=== PATIENT | male | born 1995 | race Hispanic/Latino ===

== ENCOUNTER 2020-01-21 19:40 | Emergency (ER) | payer BC, SELFPAY ==
[2020-01-21] MEDS ORDERED: MORPHINE 4 MG/ML SYR ONE (20:54)
[2020-01-21] MEDS ORDERED: ONDANSETRON 4 MG/2 ML VIAL ONE (20:54)
[2020-01-21 20:55] LABS: Basophils % 0.7 % (0-1.3); Hematocrit 49.6 % (39.6-49.0); Lymphocytes % 22.1 % (15.3-44.8); RBC Red Blood Cell Count 5.88 M/uL (4.33-5.43)
[2020-01-21 21:08] LABS: Potassium 3.5 mmol/L (3.5-5.1)
[2020-01-21] MEDS ORDERED: NA CHLORIDE 0.9% 1,000 ML ONE (21:14)
--- NOTE | 2020-01-21 23:33 | ER ---
Nurse's Notes [facility] Name: Jhoan Lin Age: 24 yrs Sex: Male : 1995 Arrival Date: 01/21/2020 Time: 19:42 Bed 13 Private MD: Diagnosis: Cellulitis of abdominal wall;Cutaneous abscess of abdominal wall Presentation: 01/20 19:48 Chief complaint: Patient states: Mid abdominal pain since Wednesday. States he believes ll1 its a hernia, lifts heavy objects at work. No N/V/D or fever. Coronavirus screen: Client denies travel out of the [place] in the last 14 days. At this time, the client does not indicate any symptoms associated with coronavirus-19. Ebola Screen: Patient denies travel to an Ebola-affected area in the 21 days before illness onset. Initial Sepsis Screen: Does the patient meet any 2 criteria? HR > 90 bpm. No. Patient's initial sepsis screen is negative. Risk Assessment: Do you want to hurt yourself or someone else? Patient reports no desire to harm self or others. Onset of symptoms was January 18, 2020. 19:48 Method Of Arrival: Ambulatory ll1 19:48 Acuity: DINESH 3 ll1 20:30 Initial Sepsis Screen: Does the patient have a suspected source of infection? Yes: wh Acute abdominal pain. Historical: - Allergies: 19:50 No Known Allergies; ll1 - PSHx: 19:50 None; ll1 - Immunization history:: Flu vaccine is not up to date. - Social history:: Smoking status: Patient/guardian denies using tobacco, Stopped _ months ago 2 Patient/guardian denies using alcohol, the patient reports quitting approximately .[address] drugs. Screenin:30 Abuse screen: Denies threats or abuse. Denies injuries from another. Nutritional wh screening: No deficits noted. Tuberculosis screening: No symptoms or risk factors identified. Fall Risk None identified. Assessment: 20:10 General: Appears in no apparent distress. Behavior is calm, cooperative, appropriate wh for age. Pain: Complains of pain in umbilical area. Neuro: Level of Consciousness is awake, alert, obeys commands, Oriented to person, place, time, situation, Appropriate for age. Cardiovascular: Heart tones S1 S2. Respiratory: Airway is patent Respiratory effort is even, unlabored, Respiratory pattern is regular, symmetrical, Breath sounds are clear bilaterally. GI: Abdomen is flat, non-distended, Bowel sounds present X 4 quads. Abd is soft Abdomen is tender to palpation in umbilical area. : No signs and/or symptoms were reported regarding the genitourinary system. EENT: No signs and/or symptoms were reported regarding the EENT system. Derm: Skin is intact, is healthy with good turgor, Skin is pink, warm \T\ dry. normal. Musculoskeletal: Circulation, motion, and sensation intact. 22:00 Reassessment: Patient appears in no apparent distress at this time. No changes from previously documented assessment. Patient and/or family updated on plan of care and expected duration. Pain level reassessed. Patient is alert, oriented x 3, equal unlabored respirations, skin warm/dry/pink. 23:30 Reassessment: Patient appears in no apparent distress at this time. No changes from previously documented assessment. Patient and/or family updated on plan of care and expected duration. Pain level reassessed. Patient is alert, oriented x 3, equal unlabored respirations, skin warm/dry/pink. Patient states feeling better. Patient states symptoms have improved. Vital Signs: 19:48 BP 129 / 67; Pulse 92; Resp 17; Temp 98.8; Pulse Ox 98% ; Pain 5/10; ll1 21:00 BP 103 / 90; Pulse 82; Resp 18; Pulse Ox 94% on R/A; wh 22:00 BP 109 / 57; Pulse 80; Resp 18; Pulse Ox 99% on R/A; Pain 1/10; wh 23:30 BP 114 / 60; Pulse 71; Resp 18; Pulse Ox 99% on R/A; wh ED Course: 19:42 Patient arrived in ED. ag3 19:49 Triage completed. ll1 19:50 Arm band placed on Patient placed in an exam room, on a stretcher. ll1 19:51 Chelsey Streeter FNP-C [facility]. kb 19:51 Jabier Rai MD is Attending Physician. kb 20:12 Bryan Ross is Primary Nurse. wh 20:30 Patient has correct armband on for positive identification. Bed in low position. Call light in reach. Side rails up X 1. Pulse ox on. NIBP on. 20:30 Inserted saline lock: 20 gauge in left antecubital area, using aseptic technique. Blood wh collected. By Fadumo Brian RN. 21:48 CT Abd/Pelvis - IV Contrast Only In Process Unspecified. EDMS 23:32 Vijay Lopez MD is Referral Physician. kb 23:45 IV discontinued, intact, bleeding controlled, No redness/swelling at site. 23:58 No provider procedures requiring assistance completed. Administered Medications: 20:30 Drug: NS 0.9% 1000 ml Route: IV; Rate: 1000 ml; Site: left antecubital; 01/21 00:01 Follow up: Response: No adverse reaction; IV Status: Completed infusion 01/20 20:32 Drug: morphine 4 mg {Note: RASS 0.} Route: IVP; Site: left antecubital; 01/21 00:01 Follow up: Response: No adverse reaction; Pain is decreased; RASS: Alert and Calm (0) 01/20 20:34 Drug: Zofran (Ondansetron) 4 mg Route: IVP; Site: left antecubital; 01/21 00:01 Follow up: Response: No adverse reaction 00:01 Follow up: Response: No adverse reaction; Nausea is decreased 01/20 23:42 Drug: Bactrim (160 mg-800 mg (DS) 1 tablet Route: PO; 01/21 00:00 Follow up: Response: No adverse reaction 01/20 23:42 Drug: KeFLEX 500 mg Route: PO; 01/21 00:00 Follow up: Response: No adverse reaction Outcome: 01/20 23:32 Discharge ordered by . kb 23:46 Discharged to home ambulatory. 23:46 Condition: stable 23:46 Discharge instructions given to patient, Instructed on discharge instructions, follow up and referral plans. medication usage, POC Demonstrated understanding of instructions, follow-up care, medications, POC Prescriptions given X 2. 01/21 00:02 Patient left the ED. Signatures: Dispatcher [employer] EDMS Chelsey Streeter, MARBLE MACHINE TENDER-C MARBLE MACHINE TENDER-Bryan Hughes María Wu ag3 Fadumo Brian, RN RN ls4 Michael Mccall RN RN ll1 Corrections: (The following items were deleted from the chart) 00:02 09/13 22:00 BP 109 / 57; Pulse 80bpm; Resp 18bpm; Pulse Ox 99% RA; wh wh
--- NOTE | 2020-01-21 23:33 | EDPHYS ---
Physician Documentation [facility] Name: Jhoan Lin Age: 24 yrs Sex: Male : 1995 Arrival Date: 01/21/2020 Time: 19:42 Bed 13 Private MD: ED Physician Jabier Rai HPI: 01/20 20:25 This 24 yrs old Male presents to ER via Ambulatory with complaints of kb Abdominal Pain. 20:25 The patient presents with abdominal pain in the periumbilical area. Onset: The kb symptoms/episode began/occurred 3 hour(s) ago. The symptoms do not radiate. Associated signs and symptoms: none. The symptoms are described as constant. Modifying factors: The symptoms are alleviated by nothing, the symptoms are aggravated by pressure. Severity of pain: At its worst the pain was moderate in the emergency department the pain is unchanged. The patient has not experienced similar symptoms in the past. The patient has not recently seen a physician. Pt reports he was lifting something heavy on Wednesday and started having abd pain. Historical: - Allergies: 19:50 No Known Allergies; ll1 - PSHx: 19:50 None; ll1 - Immunization history:: Flu vaccine is not up to date. - Social history:: Smoking status: Patient/guardian denies using tobacco, Stopped _ months ago 2 Patient/guardian denies using alcohol, the patient reports quitting approximately .[address], [address] drugs. ROS: 20:25 Constitutional: Negative for fever, chills, and weight loss, Cardiovascular: Negative kb for chest pain, palpitations, and edema, Respiratory: Negative for shortness of breath, cough, wheezing, and pleuritic chest pain, Back: Negative for injury and pain, MS/Extremity: Negative for injury and deformity, Skin: Negative for injury, rash, and discoloration, Neuro: Negative for headache, weakness, numbness, tingling, and seizure. 20:25 Abdomen/GI: Positive for abdominal pain, Negative for nausea, vomiting, and diarrhea. Exam: 20:24 Constitutional: This is a well developed, well nourished patient who is awake, alert, kb and in no acute distress. Head/Face: Normocephalic, atraumatic. Chest/axilla: Normal chest wall appearance and motion. Nontender with no deformity. No lesions are appreciated. Cardiovascular: Regular rate and rhythm with a normal S1 and S2. No gallops, murmurs, or rubs. Normal PMI, no JVD. No pulse deficits. Respiratory: Lungs have equal breath sounds bilaterally, clear to auscultation and percussion. No rales, rhonchi or wheezes noted. No increased work of breathing, no retractions or nasal flaring. Back: No spinal tenderness. No costovertebral tenderness. Full range of motion. Skin: Warm, dry with normal turgor. Normal color with no rashes, no lesions, and no evidence of cellulitis. MS/ Extremity: Pulses equal, no cyanosis. Neurovascular intact. Full, normal range of motion. Neuro: Awake and alert, GCS 15, oriented to person, place, time, and situation. Cranial nerves II-XII grossly intact. Motor strength 5/5 in all extremities. Sensory grossly intact. Cerebellar exam normal. Normal gait. 20:24 Abdomen/GI: Inspection: abdomen appears normal, Bowel sounds: normal, in all quadrants, Palpation: soft, in all quadrants, moderate abdominal tenderness, in the umbilical area, Hernia: noted in the umbilical area. Vital Signs: 19:48 BP 129 / 67; Pulse 92; Resp 17; Temp 98.8; Pulse Ox 98% ; Pain 5/10; ll1 21:00 BP 103 / 90; Pulse 82; Resp 18; Pulse Ox 94% on R/A; wh 22:00 BP 109 / 57; Pulse 80; Resp 18; Pulse Ox 99% on R/A; Pain 1/10; wh 23:30 BP 114 / 60; Pulse 71; Resp 18; Pulse Ox 99% on R/A; wh MDM: 19:52 Patient medically screened. kb 20:23 Data reviewed: vital signs, nurses notes. Data interpreted: Pulse oximetry: on room air kb is 98 %. Interpretation: normal. 23:31 Counseling: I had a detailed discussion with the patient and/or guardian regarding: the kb historical points, exam findings, and any diagnostic results supporting the discharge/admit diagnosis, lab results, radiology results, the need for outpatient follow up, a general surgeon, to return to the emergency department if symptoms worsen or persist or if there are any questions or concerns that arise at home. 01/20 20:10 Order name: Basic Metabolic Panel; Complete Time: 21:09 kb 01/20 20:10 Order name: CBC with Diff; Complete Time: 21:00 kb 01/20 20:10 Order name: CT Abd/Pelvis - IV Contrast Only 01/20 23:38 Order name: CREATININE WHOLE BLOOD; Complete Time: 23:47 EDMS 01/20 20:10 Order name: IV Saline Lock; Complete Time: 20:59 kb 01/20 20:10 Order name: Labs collected and sent; Complete Time: 20:59 kb Administered Medications: 20:30 Drug: NS 0.9% 1000 ml Route: IV; Rate: 1000 ml; Site: left antecubital; 01/21 00:01 Follow up: Response: No adverse reaction; IV Status: Completed infusion 01/20 20:32 Drug: morphine 4 mg {Note: RASS 0.} Route: IVP; Site: left antecubital; 01/21 00:01 Follow up: Response: No adverse reaction; Pain is decreased; RASS: Alert and Calm (0) 01/20 20:34 Drug: Zofran (Ondansetron) 4 mg Route: IVP; Site: left antecubital; 01/21 00:01 Follow up: Response: No adverse reaction 00:01 Follow up: Response: No adverse reaction; Nausea is decreased 01/20 23:42 Drug: Bactrim (160 mg-800 mg (DS) 1 tablet Route: PO; 01/21 00:00 Follow up: Response: No adverse reaction 01/20 23:42 Drug: KeFLEX 500 mg Route: PO; 01/21 00:00 Follow up: Response: No adverse reaction Disposition: 00:59 Co-signature as Attending Physician, Jabier Rai MD. rn Disposition: 01/21/20 23:32 Discharged to Home. Impression: Cellulitis of abdominal wall, Cutaneous abscess of abdominal wall. - Condition is Stable. - Discharge Instructions: Cellulitis, Adult, Skin Abscess, [id number]. - Prescriptions for Keflex 500 mg Oral Capsule - take 1 capsule by ORAL route every 8 hours for 10 days; 30 capsule. Bactrim DS 800- 160 mg Oral Tablet - take 1 tablet by ORAL route every 12 hours for 10 days; 20 tablet. - Medication Reconciliation Form, Thank You Letter, Antibiotic Education, Prescription Opioid Use, Work release form, SBAR form form. - Follow up: Emergency Department; When: As needed; Reason: Worsening of condition. Follow up: Private Physician; When: 2 - 3 days; Reason: Recheck today's complaints, Continuance of care, Re-evaluation by your physician. Follow up: Vijay Lopez MD; When: Tomorrow; Reason: Recheck today's complaints. Signatures: Dispatcher [employer] EDOH Chelsey Streeter, POST FORM REMOVER-C POST FORM REMOVER-Ckb Jabier Rai MD MD rn [place], Michael Rayo RN RN ll1 Corrections: (The following items were deleted from the chart) 01/20 23:32 23:32 01/21/2020 23:32 Discharged to Home. Impression: Cellulitis of abdominal wall; kb Cutaneous abscess of abdominal wall. Condition is Stable. Forms are Medication Reconciliation Form, Thank You Letter, Antibiotic Education, Prescription Opioid Use. Follow up: Emergency Department; When: As needed; Reason: Worsening of condition. Follow up: Private Physician; When: 2 - 3 days; Reason: Recheck today's complaints, Continuance of care, Re-evaluation by your physician. 01/21 00:02 01/20 23:32 01/21/2020 23:32 Discharged to Home. Impression: Cellulitis of abdominal wh wall; Cutaneous abscess of abdominal wall. Condition is Stable. Discharge Instructions: Cellulitis, Adult, Skin Abscess, [id number]. Prescriptions for Keflex 500 mg Oral Capsule - take 1 capsule by ORAL route every 8 hours for 10 days; 30 capsule, Bactrim DS 800-160 mg Oral Tablet - take 1 tablet by ORAL route every 12 hours for 10 days; 20 tablet. and Forms are Medication Reconciliation Form, Thank You Letter, Antibiotic Education, Prescription Opioid Use. Follow up: Emergency Department; When: As needed; Reason: Worsening of condition. Follow up: Private Physician; When: 2 - 3 days; Reason: Recheck today's complaints, Continuance of care, Re-evaluation by your physician. Follow up: Vijay Lopez; When: Tomorrow; Reason: Recheck today's complaints. kb
[2020-01-21] MEDS ORDERED: SMZ./TMP. 800/160 MG TABLET ONE (23:47)
[2020-01-21] MEDS ORDERED: CEPHALEXIN 250 MG CAP ONE (23:48)
[2020-01-22 00:48] VITALS: TEMP 98.8
[2020-01-22 00:51] VITALS: O2SAT 99
[2020-01-22 00:52] VITALS: BP 114/60
--- NOTE | 2020-01-22 13:22 | RAD REPORT ---
EXAM DESCRIPTION: CT - Abdomen Pelvis W Contrast - 01/22/2020 4:21 am ADDENDUM #1 Amended report: Increased attenuation subcutaneous fat periumbilical soft tissues consistent with edema and celluliti s. 1 cm low-attenuation focus left periumbilical soft tissues possibly tiny abscess. This finding is best identified on axial series 401 arterial phase imaging image 49. Electronically signed by: Lyndsay Mota MD 01/21/2020 10:37 PM CDT End of Addendum EXAM DESCRIPTION: Abdomen Pelvis W Contrast CLINICAL HISTORY: 24 years Male ABD PAIN COMPARISON: None TECHNIQUE: Images were obtained in axial, sagittal, and coronal planes. Intravenous contrast was adm inistered. This exam was performed according to our departmental dose-optimization program which includes use of Automated Exposure Control, adjustment of the mA and/or kV according to patient size and/or use o f iterative reconstruction technique. FINDINGS: No abnormality involving the liver, pancreas, gallbladder, or adrenal glands bilaterally. Spleen is enlarged measuring 13.1 cm in longitudinal dimension. No obstructing renal calcifications bilaterally. No hydronephrosis bilaterally. Unremarkable bladder. Appendix within normal limits. No bowel obstruction or perforation. Mucosal thickening involving the colon. No abnormality abdominal aorta or portal vein. No adenopathy or abnormal fluid collections seen. No acute osseous abnormality. Sclerotic focus lateral right ileum possibly bone island. No abnormality lower lungs bilaterally. IMPRESSION: Findings consistent with colitis. Appendix within normal limits. Otherwise unremarkable study. Electronically signed by: Lyndsay Mota MD 01/21/2020 10:01 PM CDT Due to temporary technical issues with the PACS/Fluency reporting system, reports are being signed by the in house radiologist without review as a courtesy to ensure prompt reporting. The interpreting r adiologist is fully responsible for the content of the report.
== END 2020-01-22 00:02 | disposition home or self-care (01) ==
LOC: ER 19:40
DX: L03.311 Cellulitis of abdominal wall (principal); L02.211 Cutaneous abscess of abdominal wall
CPT/HCPCS: 36415; 74177; 80048; 82565; 85025; 96361; 96374; 96375; 99284; J2405; J7030; Q9967